=== PATIENT | female | born 1945 | race Two or more races ===

== ENCOUNTER 2018-06-27 21:59 | Emergency (ER) | payer OTHER ==
[~2018-06-27] VITALS: Ht 160 cm; Wt 69.0 kg
[2018-06-27] MEDS ORDERED: MORPHINE SULFATE 4 MG/ML CPJ (NOT FOR IM USE) IV STA (22:16)
[2018-06-27] MEDS ORDERED: HYDROCODONE/ACETAMINOPHEN 5/325MG TABLET PO ONE (22:45)
[2018-06-27 22:56] LABS: BASOPHILS % 0.3 % (0.0-2.0); EOSINOPHILS % 2.4 % (0.0-5.0); HEMATOCRIT. 35.4 % (36.0-48.0); HEMOGLOBIN. 12.1 g/dL (12.0-16.0); LYMPHOCYTES % 35.4 % (20.0-50.0); MEAN CORPUSCULAR HEMOGLOBIN 29.8 pg (28.0-32.0); MEAN CORPUSCULAR VOLUME 87.2 fL (81.0-99.0); MEAN PLATELET VOLUME 8.6 fl (7.4-10.4); NEUTROPHILS % 53.9 % (40.0-76.0); PLATELET 193 x1000/uL (130-400); RED BLOOD CELL COUNT 4.06 mill/uL (4.2-5.4); RED CELL DISTRIBUTION WIDTH 13.4 % (11.6-14.6)
[2018-06-27 22:58] LABS: CHLORIDE 108 mEq/L (98-107)
[2018-06-28] MEDS ORDERED: CLONIDINE 0.2MG TABLET PO SCH (01:00)
[2018-06-28 02:14] VITALS: BP 159/70
== END 2018-06-28 02:16 | disposition home or self-care (01) ==
LOC: ER 21:59
DX: S09.8XXA Other specified injuries of head, initial encounter (principal); S40.011A Contusion of right shoulder, initial encounter; R06.00 Dyspnea, unspecified; I16.1 Hypertensive emergency; I10 Essential (primary) hypertension; E11.9 Type 2 diabetes mellitus without complications; V79.88XA Bus occupant (driver) (passenger) injured in other specified transport accidents, initial encounter; Y93.89 Activity, other specified; Y92.89 Other specified places as the place of occurrence of the external cause; Y99.8 Other external cause status
CPT/HCPCS: 36415; 70450; 71045; 73030; 80053; 83880; 84484; 85025; 99284; Z7610; A4565; J2270